=== PATIENT | female | born 1995 | race Hispanic/Latino ===

== ENCOUNTER 2021-10-05 17:50 | Emergency (ER) | payer SELFPAY ==
[~2021-10-05] VITALS: Ht 170.2 cm; Wt 52.0 kg
[2021-10-05] MEDS ORDERED: AMOX/K CLAV875 M1 PO (19:21)
[2021-10-05 19:30] VITALS: BP 104/57
== END 2021-10-05 19:30 | disposition home or self-care (01) | DRG 605 ==
LOC: ED 17:50
DX: S60.571A Other superficial bite of hand of right hand, initial encounter (principal); W54.0XXA Bitten by dog, initial encounter; Y93.89 Activity, other specified; Y92.009 Unspecified place in unspecified non-institutional (private) residence as the place of occurrence of the external cause